=== PATIENT | female | born 1950 | race Caucasian/White ===

== ENCOUNTER → 2016-05-30 | Outpatient (CLI) | payer MEDICARE, OTHER ==
--- NOTE | 2016-05-31 08:03 | XR ---
EXAMINATION TYPE: XR sternum DATE OF EXAM: 05/30/2016 4:31 PM COMPARISON: NONE HISTORY: 66-year-old female with chest lump under xiphoid for 2 to 3 days. TECHNIQUE: 2 views FINDINGS: No sternal fracture identified. No periostitis or osteolysis identified. Costochondral calcifications are noted. IMPRESSION: No radiographically apparent abnormality of the sternum. Costochondral calcifications are present. If the clinical finding persists or enlarges, targeted ultrasound can be considered.
== END | disposition home or self-care (01) ==
LOC: RADXRYALE 16:10
PROVIDERS: ATTEND Physician Assistant Medical
DX: R93.8 Abnormal findings on diagnostic imaging of other specified body structures (principal)
CPT/HCPCS: 71120

== ENCOUNTER → 2016-06-02 | Outpatient (CLI) | payer MEDICARE, OTHER ==
--- NOTE | 2016-06-02 11:28 | CT ---
EXAMINATION TYPE: CT chest wo con DATE OF EXAM: 06/02/2016 11:01 AM COMPARISON: Sternal x-ray from 3 days ago. HISTORY: Abn CXr and Lump in chest CT DLP: 524 mGycm. Automated Exposure Control for Dose Reduction was Utilized. TECHNIQUE: CT scan of the thorax is performed without IV contrast. FINDINGS: LUNGS: There is patchy groundglass opacity in the right midlung anteriorly near axial image 22 consid er limited infectious process at this level. There is no concerning parenchymal mass or nodule identi fied. There is no pleural effusion or pneumothorax seen. The tracheobronchial tree is patent. MEDIASTINUM: Lack of IV contrast is noted to limit evaluation for mediastinal and especially hilar ad enopathy. There are no definitive greater than 1 cm hilar or mediastinal lymph nodes. No cardiomega ly or pericardial effusion is seen. Coronary artery calcification is present. Bovine type arch is see n. There is mild calcified plaque in aorta arch extending into arch branch vessels OTHER: Liver is diffusely low dense consistent with fatty infiltration. Some multilevel spurring in t horacic spine is present. Sternum appears within normal limits without suspicious lytic or sclerotic lesion or adjacent soft tissue mass noted. IMPRESSION: 1. No suspicious finding at level of sternum. 2. Patchy groundglass opacity right midlung anteriorly could reflect mild or early acute infectious p rocess in appropriate clinical setting, clinical correlation advised.
== END | disposition home or self-care (01) ==
LOC: RADCTMAIN 10:05
PROVIDERS: ATTEND Physician Assistant Medical
DX: R22.2 Localized swelling, mass and lump, trunk (principal)
CPT/HCPCS: 71250

== ENCOUNTER → 2016-07-19 | Outpatient (CLI) | payer MEDICARE, OTHER ==
--- NOTE | 2016-07-20 10:52 | XR ---
Right foot HISTORY: Trauma and pain 3 views of the right foot No comparisons The digits are flexed which may limit sensitivity. Alignment and bone mineralization are maintained. Mild degenerative change present at the metatarsophalangeal joint of the first digit. Atherosclerotic vascular calcifications are suspected. There is spurring at the tibiotalar joint, intertarsal joints and metatarsal tarsal and interphalangeal joints. Plantar calcaneus spur is noted. There is enthesop hyte at the insertion of the Achilles tendon. IMPRESSION: Osteoarthritis. No fracture or dislocation evident, follow-up as indicated
== END ==
LOC: RADXRYALE 15:34
PROVIDERS: ATTEND Physician Assistant Medical
DX: M19.071 Primary osteoarthritis, right ankle and foot (principal)

== ENCOUNTER 2016-12-05 09:05 | Day surgery (SDC) | payer MEDICARE, OTHER ==
[2016-12-03 16:05] VITALS: BMI 24.4
[~2016-12-05 09:05] MED LIST: LACTATED RINGERS 1,000 ML IV SCH
[2016-12-05 09:32] VITALS: RESP 16; TEMP 97.8
[2016-12-05 09:41] LABS: Glucose,Whole Blood 108 mg/dL (75-99)
[2016-12-05] MEDS ORDERED: LIDOCAINE 1% 20 ML VIAL (10MG/ML) FOR IV START INTRADERMA ONE (09:41)
[2016-12-05] MEDS ORDERED: PROPOFOL 10 MG/ML 20 ML VIAL IV ONE (09:56)
--- NOTE | 2016-12-05 10:07 | P.PCN ---
Date of Procedure: 12/05/16 Procedure(s) Performed: BRIEF HISTORY: Patient is a 66-year-old white female, scheduled for an upper endoscopy as a part of evaluation of epigastric pain for the last several months duration. She denies any heartburn, denies any recent NSAID use. No prior history of peptic ulcer disease. PROCEDURE PERFORMED: Esophagogastroduodenoscopy with biopsy. PREOPERATIVE DIAGNOSIS: Chronic epigastric pain. IV sedation per anesthesia. PROCEDURE: After informed consent was obtained, the patient was brought into the endoscopy unit. IV sedation was administered by Anesthesia under continuous monitoring. Initially the Olympus GIF-140 video endoscope was inserted into the mouth. Esophagus intubated without any difficulty. It was gradually advanced into the stomach and duodenum and carefully examined. The bulb and the second part of the duodenum appeared normal. The scope at this time was withdrawn to the stomach, adequately insufflated with air, and upon careful examination, mucosa of the antrum had mild gastritis and biopsies were done from this area. The body, cardia and the fundus appeared normal. The scope was then withdrawn into the esophagus. The GE junction was located at 39 cm from the incisors. There were 2 superficial erosions consistent with LA grade a reflux esophagitis. The rest of the esophagus appeared normal and the patient tolerated the procedure well. IMPRESSION: 1. Mild antral gastritis. 2. LA grade A reflux esophagitis. RECOMMENDATIONS: The findings of this examination were discussed with the patient as well as her family. She was advised to follow with the biopsy results. She was given a prescription for Zantac 150 milligrams twice daily..
[2016-12-05 10:57] VITALS: BP 179/81; PULSE 57
== END 2016-12-05 11:06 | disposition home or self-care (01) ==
LOC: ORWHC2ENDO 09:05
PROVIDERS: ATTEND Internal Medicine Gastroenterology
DX: K21.0 Gastro-esophageal reflux disease with esophagitis (principal); I25.10 Atherosclerotic heart disease of native coronary artery without angina pectoris; I10 Essential (primary) hypertension; Z72.0 Tobacco use; E78.5 Hyperlipidemia, unspecified; E11.9 Type 2 diabetes mellitus without complications; Z79.84 Long term (current) use of oral hypoglycemic drugs; E07.9 Disorder of thyroid, unspecified; N28.9 Disorder of kidney and ureter, unspecified; Z86.73 Personal history of transient ischemic attack (TIA), and cerebral infarction without residual deficits; G25.81 Restless legs syndrome; M10.9 Gout, unspecified; Z79.891 Long term (current) use of opiate analgesic; Z79.899 Other long term (current) drug therapy; Z91.041 Radiographic dye allergy status
CPT/HCPCS: 88305; 88342; 43239; J2704

== ENCOUNTER → 2018-03-20 | Outpatient (CLI) | payer MEDICARE, OTHER ==
--- NOTE | 2018-03-20 14:27 | XR ---
EXAMINATION TYPE: XR Hip Complete LT DATE OF EXAM: 03/20/2018 CLINICAL HISTORY: pain TECHNIQUE: AP and frogleg views of the left hip are obtained. COMPARISON: None. FINDINGS: There is no acute fracture/dislocation evident. The joint space appears within normal li mits. The overlying soft tissue appears unremarkable. IMPRESSION: 1. There is no acute fracture or dislocation.ICD 10 NO FRACTURE, INITIAL EVALUATION
== END ==
LOC: RADXRYALE 13:54
PROVIDERS: ATTEND Physician Assistant Medical
DX: M25.552 Pain in left hip (principal)
CPT/HCPCS: 73502

== ENCOUNTER 2018-07-29 16:43 | Emergency (ER) | payer MEDICARE, OTHER ==
[2018-07-29] MEDS ORDERED: NALOXONE 0.4 MG/ML 1 ML VIAL IV STA ×2 (16:46→16:47)
[2018-07-29] MEDS ORDERED: methylPREDNISolone SOD SUCCI 125 MG/2 ML VIAL IV STA (16:50)
[2018-07-29] MEDS ORDERED: FAMOTIDINE 20 MG/2 ML VIAL IV STA (16:50)
[2018-07-29] MEDS ORDERED: diphenhydrAMINE 50 MG/ML 1 ML VIAL IVP STA (16:50)
[2018-07-29 16:52] VITALS: TEMP 98.1
[2018-07-29] MEDS ORDERED: LORazepam 2 MG/ML INJ IV STA (16:54)
[2018-07-29] MEDS ORDERED: FAMOTIDINE 20 MG/2 ML VIAL IV ONE (17:00)
[2018-07-29] MEDS ORDERED: methylPREDNISolone SOD SUCCI 125 MG/2 ML VIAL IV ONE (17:00)
[2018-07-29] MEDS ORDERED: LORazepam 2 MG/ML INJ IV ONE (17:00)
[2018-07-29] MEDS ORDERED: diphenhydrAMINE 50 MG/ML 1 ML VIAL IVP ONE (17:00)
--- NOTE | 2018-07-29 17:03 | ED ---
Neuro HPI - General Chief Complaint: Neuro Symptoms/Deficit Stated Complaint: poss stroke Time Seen by Provider: 07/29/18 16:43 Source: EMS, RN notes reviewed, old records reviewed Mode of arrival: EMS Limitations: altered mental status - History of Present Illness Is the patient presenting with stroke symptoms?: Yes Initial Comments: This is a 60-year-old female history of TIA CVA, heart disease anemia renal disease osteoarthritis diabetes who has sudden onset about 45 minutes prior to arrival of decreased level of consciousness with decreased use of the right upper and lower extremity. Patient was noted have elevated blood sugar per paramedics. No trauma reported she apparently was at a movie theater at the time. Limited information available at this time. - Related Data Home Medications: Home Medications Medication Instructions Recorded Confirmed Allopurinol [Zyloprim] 100 mg PO DAILY 12/14/13 07/29/18 Gabapentin 600 mg PO QID 12/14/13 07/29/18 Metoprolol Tartrate 12.5 mg PO BID 12/14/13 07/29/18 clonazePAM [KlonoPIN] 0.5 mg PO BID 12/14/13 07/29/18 Atorvastatin [Lipitor] 40 mg PO HS 12/03/16 07/29/18 Fenofibrate,Micronized 134 mg PO DAILY 12/03/16 07/29/18 [Fenofibrate] Ergocalciferol (Vitamin D2) 50,000 unit PO Q7D 07/29/18 07/29/18 [Vitamin D2] Fish Oil/Dha/Epa [Fish Oil 1,200 1 cap PO DAILY 07/29/18 07/29/18 mg Fish Oil] Furosemide [Lasix] 20 mg PO DAILY PRN 07/29/18 07/29/18 Levothyroxine Sodium 112 mcg PO DAILY 07/29/18 07/29/18 Magnesium Oxide [Mag-Ox] 250 mg PO DAILY 07/29/18 07/29/18 Niacin 500 mg PO DAILY 07/29/18 07/29/18 Pioglitazone [Actos] 45 mg PO DAILY 07/29/18 07/29/18 Ranitidine HCl 150 mg PO BID 07/29/18 07/29/18 amLODIPine [Norvasc] 10 mg PO DAILY 07/29/18 07/29/18 hydrALAZINE HCL [Apresoline] 25 mg PO BID 07/29/18 07/29/18 oxyCODONE-APAP 7.5-325MG [Percocet 1 tab PO Q6HR PRN 07/29/18 07/29/18 7.5-325 mg] sitaGLIPtin [Januvia] 100 mg PO DAILY 07/29/18 07/29/18 Allergies/Adverse Reactions: Allergies Allergy/AdvReac Type Severity Reaction Status Date / Time Iodinated Contrast- Oral and Allergy Anaphylaxis Verified 07/29/18 17:23 IV Dye Review of Systems ROS Statement: Those systems with pertinent positive or pertinent negative responses have been documented in the HPI. ROS Other: All systems not noted in ROS Statement are negative. Limitations: ROS unobtainable due to patients medical condition General Exam - General Exam Comments Initial Comments: Physical well-developed well-nourished lethargic female she does open her eyes upon request she does open her mouth on request she does squeeze his left upper extremity does not do the same to the right. He does demonstrate somnolence. Limitations: altered mental status, physical limitation General appearance: lethargic Head exam: Present: atraumatic, normocephalic, normal inspection Eye exam: Present: normal appearance, PERRL, EOMI. Absent: scleral icterus, conjunctival injection, periorbital swelling ENT exam: Present: other (Dentures are in place) Neck exam: Present: normal inspection, full ROM (No stridor JVD or bruits), other. Absent: tenderness, meningismus, lymphadenopathy Respiratory exam: Present: normal lung sounds bilaterally. Absent: respiratory distress, wheezes, rales, rhonchi, stridor Cardiovascular Exam: Present: regular rate, normal rhythm, normal heart sounds. Absent: systolic murmur, diastolic murmur, rubs, gallop, clicks GI/Abdominal exam: Present: soft, normal bowel sounds. Absent: distended, tenderness, guarding, rebound, rigid, bruit, pulsatile mass Rectal exam: Present: deferred Extremities exam: Present: normal capillary refill, other (Patient does not move the right upper or lower extremity). Absent: full ROM Back exam: Present: normal inspection Neurological exam: Present: altered, CN II-XII intact, motor sensory deficit Psychiatric exam: Present: other (Unable to evaluate at this time) Skin exam: Present: warm, dry, intact, normal color. Absent: rash Stroke MDM - Lab Data Result diagrams: 07/29/18 16:52 07/29/18 16:52 Lab Results 07/29/18 07/29/18 07/29/18 Range/Units 16:52 16:52 16:52 WBC 7.2 (3.8-10.6) k/uL RBC 4.18 (3.80-5.40) m/uL Hgb 12.7 (11.4-16.0) gm/dL Hct 40.1 (34.0-46.0) % MCV 95.8 (80.0-100.0) fL MCH 30.4 (25.0-35.0) pg MCHC 31.7 (31.0-37.0) g/dL RDW 16.1 H (11.5-15.5) % Plt Count 194 (150-450) k/uL Neutrophils % 61 % Lymphocytes % 30 % Monocytes % 5 % Eosinophils % 2 % Basophils % 1 % Neutrophils # 4.4 (1.3-7.7) k/uL Lymphocytes # 2.2 (1.0-4.8) k/uL Monocytes # 0.4 (0-1.0) k/uL Eosinophils # 0.1 (0-0.7) k/uL Basophils # 0.0 (0-0.2) k/uL Anisocytosis Slight PT 11.2 (9.0-12.0) sec INR 1.1 (<1.2) APTT 23.6 (22.0-30.0) sec Sodium 141 (137-145) mmol/L Potassium 4.2 (3.5-5.1) mmol/L Chloride 106 (98-107) mmol/L Carbon Dioxide 28 (22-30) mmol/L Anion Gap 7 mmol/L BUN 21 H (7-17) mg/dL Creatinine 1.62 H (0.52-1.04) mg/dL Est GFR (CKD-EPI)AfAm 37 (>60 ml/min/1.73 sqM) Est GFR (CKD-EPI)NonAf 32 (>60 ml/min/1.73 sqM) Glucose 244 H (74-99) mg/dL POC Glucose (mg/dL) (75-99) mg/dL POC Glu Medical Records Analyst ID Calcium 9.3 (8.4-10.2) mg/dL Total Bilirubin 0.4 (0.2-1.3) mg/dL AST 26 (14-36) U/L ALT 13 (9-52) U/L Alkaline Phosphatase 60 (38-126) U/L Creatine Kinase 79 (30-135) U/L Troponin I (0.000-0.034) ng/mL Total Protein 6.5 (6.3-8.2) g/dL Albumin 4.0 (3.5-5.0) g/dL 07/29/18 07/29/18 Range/Units 16:52 17:19 WBC (3.8-10.6) k/uL RBC (3.80-5.40) m/uL Hgb (11.4-16.0) gm/dL Hct (34.0-46.0) % MCV (80.0-100.0) fL MCH (25.0-35.0) pg MCHC (31.0-37.0) g/dL RDW (11.5-15.5) % Plt Count (150-450) k/uL Neutrophils % % Lymphocytes % % Monocytes % % Eosinophils % % Basophils % % Neutrophils # (1.3-7.7) k/uL Lymphocytes # (1.0-4.8) k/uL Monocytes # (0-1.0) k/uL Eosinophils # (0-0.7) k/uL Basophils # (0-0.2) k/uL Anisocytosis PT (9.0-12.0) sec INR (<1.2) APTT (22.0-30.0) sec Sodium (137-145) mmol/L Potassium (3.5-5.1) mmol/L Chloride (98-107) mmol/L Carbon Dioxide (22-30) mmol/L Anion Gap mmol/L BUN (7-17) mg/dL Creatinine (0.52-1.04) mg/dL Est GFR (CKD-EPI)AfAm (>60 ml/min/1.73 sqM) Est GFR (CKD-EPI)NonAf (>60 ml/min/1.73 sqM) Glucose (74-99) mg/dL POC Glucose (mg/dL) 187 H (75-99) mg/dL POC Glu Medical Records Analyst ID Baunoch, Rashida Calcium (8.4-10.2) mg/dL Total Bilirubin (0.2-1.3) mg/dL AST (14-36) U/L ALT (9-52) U/L Alkaline Phosphatase (38-126) U/L Creatine Kinase (30-135) U/L Troponin I <0.012 (0.000-0.034) ng/mL Total Protein (6.3-8.2) g/dL Albumin (3.5-5.0) g/dL - NIH Stroke Scale 1a. Level of Consciousness: (1) not alert, arousable 1b. LOC Questions: (2) answers no questions correctly 1c. LOC Commands: (2) performs no tasks correctly 2. Best Gaze: (0) normal 3. Visual: (0) no visual loss 4. Facial Palsy: (0) normal symmetrical movement 5a. Motor Arm Left: (0) no drift 5b. Motor Arm Right: (3) no gravity effort 6a. Motor Leg Left: (0) no drift 6b. Motor Leg Right: (3) no gravity effort 7. Limb Ataxia: (0) absent 8. Sensory: (1) mild/moderate sensory loss 9. Best Language: (un) mute/global aphasia 10. Dysarthria: (un) intubated/barrier 11. Extinction/Inattention: (2) profound inattention - Thrombolytic Inclusion/Exclusion Thrombolytic Inclusion Criteria: Ischemic Stroke Onset< 3h Thrombolytic Contraindications: Systolic Pressure > 185 - EKG Data -: EKG Interpreted by Tn EKG shows normal: sinus rhythm (Sinus rhythm rate is 76. Interval 170 QRS duration 80 QT since QTC 404/454 minimal voltage criteria for LVH artifact is present.) Past Medical History Past Medical History: Cancer, CVA/TIA, Diabetes Mellitus, Hyperlipidemia, Hypertension, Osteoarthritis (OA), Renal Disease, Skin Disorder, Thyroid Disorder Additional Past Medical History / Comment(s): Hx of thyroid cancer, eczema, gout History of Any Multi-Drug Resistant Organisms: None Reported Past Surgical History: Adenoidectomy, Section, Cholecystectomy, Heart Catheterization With Stent, Tonsillectomy Additional Past Surgical History / Comment(s): thyroidectomy Past Anesthesia/Blood Transfusion Reactions: Previous Problems w/ Anesthesia Additional Past Anesthesia/Blood Transfusion Reaction / Comment(s): STATES NEEDS "PEDIATRIC SCOPE FOR INTUBATION" Date of Last Stent Placement:: 03/2004 Past Psychological History: No Psychological Hx Reported Smoking Status: Current every day smoker Course Vital Signs 07/29/18 07/29/18 07/29/18 16:46 16:47 16:48 Temperature 98.1 F Pulse Rate 78 72 Respiratory 12 16 15 Rate Blood Pressure 211/87 O2 Sat by Pulse 95 Oximetry 07/29/18 07/29/18 07/29/18 17:00 17:15 17:30 Temperature Pulse Rate 75 75 Respiratory 18 Rate Blood Pressure 220/98 206/97 220/88 O2 Sat by Pulse 99 96 97 Oximetry 07/29/18 07/29/18 17:45 18:00 Temperature Pulse Rate 76 77 Respiratory 18 18 Rate Blood Pressure 196/87 175/83 O2 Sat by Pulse 96 95 Oximetry - Reevaluation(s) Reevaluation #1: 07/29/18 17:40 Reevaluation after return from CAT scan reveals no change in patient's condition. No evidence of any acute bleed. Patient blood pressure is elevated over 220 IV medications are ordered Reevaluation #2: 07/29/18 17:40 Dr. Dilip guillen examine the patient via the robot TPA is recommended blood pressure still is elevated. Patient will be transferred to [facility] family was in attendance and do agree with the TPA administration. Risks and benefits were discussed. Reevaluation #3: 07/29/18 17:43 TPA delay due to elevated blood pressure. IV labetalol ineffective Cardene has been ordered along with a fluid challenge. Neuro status remains unchanged Reevaluation #4: 07/29/18 18:02 The blood pressure is probably within limits for TPA it is started. Patient will be transferred to [facility] I did discuss case with Dr. Fowler will be accepted patient ER to ER. The neuro interventional team is being immobilized. Critical Care Time Critical Care Time: Yes Critical Care Time: 43 minutes of critical care time which includes initial presentation with history physical labs x-rays discussed with multiple family members on several occasions reevaluation of the patient on multiple occasions. Discussion with Dr. Knapp on [address] Fowler review of old charting documentation of the above Disposition Clinical Impression: Cerebrovascular accident, Hypertensive urgency, Hyperglycemia Disposition: OTHER INSTITUTION NOT DEFINED Condition: Critical Referrals: Shalom Bliss DO [Primary Care Provider] - 1-2 days - Out of Hospital Transfer - Req. Specs Out of Hospital Transfer - Requested Specifics: Other Emergency Center
[2018-07-29 17:21] LABS: Glucose,Whole Blood 187 mg/dL (75-99)
[2018-07-29 17:23] LABS: Anisocytosis Slight; Basophils % (A) 1 %; Eosinophils # (A) 0.1 k/uL (0-0.7); Eosinophils % (A) 2 %; HCT 40.1 % (34.0-46.0); HGB 12.7 gm/dL (11.4-16.0); Lymphocytes # (A) 2.2 k/uL (1.0-4.8); Lymphocytes % (A) 30 %; MCH 30.4 pg (25.0-35.0); MCHC 31.7 g/dL (31.0-37.0); MCV 95.8 fL (80.0-100.0); Mean Platelet Volume 7.5; Monocytes # (A) 0.4 k/uL (0-1.0); Monocytes % (A) 5 %; Neutrophils # (A) 4.4 k/uL (1.3-7.7); Neutrophils % (A) 61 %; Platelet Count 194 k/uL (150-450); RBC 4.18 m/uL (3.80-5.40); RDW 16.1 % (11.5-15.5); WBC 7.2 k/uL (3.8-10.6)
[2018-07-29] MEDS ORDERED: LABETALOL 5 MG/ML VIAL MDV IVP STA (17:23)
[2018-07-29] MEDS ORDERED: SODIUM CHLORIDE 0.9% 500 ML 500 ML IV STA (17:24)
[2018-07-29 17:26] LABS: INR 1.1 (<1.2); Partial Thromboplastin Time 23.6 sec (22.0-30.0); Prothrombin Time 11.2 sec (9.0-12.0)
[2018-07-29] MEDS ORDERED: tPA (Alteplase) PER PHARMACY 1 EACH MISC MISCELLANE PRN ×2 (17:26→17:27)
[2018-07-29] MEDS ORDERED: ALTEPLASE 58 MG in EMPTY BAG 1 BAG IV STA (17:27)
[2018-07-29] MEDS ORDERED: ALTEPLASE IV STA (17:29)
[2018-07-29 17:33] LABS: Calcium 9.3 mg/dL (8.4-10.2); Potassium 4.2 mmol/L (3.5-5.1); Total Bilirubin 0.4 mg/dL (0.2-1.3); Total Protein 6.5 g/dL (6.3-8.2)
--- NOTE | 2018-07-29 17:35 | CT ---
EXAMINATION TYPE: CT brain wo con DATE OF EXAM: 07/29/2018 COMPARISON: 12/14/2013 HISTORY: Right sided weakness. CT DLP: 1139 mGycm Automated exposure control for dose reduction was used. FINDINGS: There is 2 x 1 cm area of hypodensity in the anterior right internal capsule. There is some enlargeme nt right frontal horn lateral ventricle. There is no midline shift. There is no sign of intracranial hemorrhage. The calvarium is intact. IMPRESSION: OLD LACUNAR INFARCT RIGHT INTERNAL CAPSULE. NO ACUTE INTRACRANIAL ABNORMALITY. NO CHANGE COMPARED TO LAST EXAM.
[2018-07-29] MEDS ORDERED: niCARdipine 20 MG in SODIUM CHLORIDE 0.9% 192 ML IV ONE (17:45)
[2018-07-29] MEDS ORDERED: SODIUM CHLORIDE 0.9% 500 ML 500 ML IV ONE (17:45)
[2018-07-29] MEDS ORDERED: LABETALOL SYRINGE 5 MG/ML IV ONE (17:45)
[2018-07-29 18:14] VITALS: BP 159/76; PULSE 79; RESP 16
--- NOTE | 2018-07-29 18:32 | CT ---
EXAMINATION TYPE: CT angio head neck DATE OF EXAM: 07/29/2018 HISTORY: Right sided weakness. COMPARISON: None CT DLP: 431.9 mGycm. Automated Exposure Control for Dose Reduction was Utilized. TECHNIQUE: CTA scan of the neck is performed with IV Contrast, patient injected with 50 mL of Isovue 370, axial images are obtained, coronal and sagittal reformatted images are reviewed. Three-D recons tructed images are created on an independent workstation and reviewed. FINDINGS: There is normal branching pattern of the great vessels on the aortic arch. There is bilateral arteria l flow in the subclavian arteries. There is bilateral arterial flow in the vertebral arteries which a re fairly symmetric. There is arterial flow in the common internal and external carotid arteries bila terally. There is approximate 50% luminal narrowing due to plaque formation at the origin left paralegal internship al carotid artery. There is similar 50% luminal narrowing due to long segment plaque at the proximal right internal carotid artery. There is no evidence of carotid artery aneurysm or dissection. There is arterial flow in the anterior middle and posterior cerebral arteries bilaterally. There is a rterial flow in the vertebrobasilar artery system. I see no mass effect. There is no evidence of intr acranial aneurysm or neovascularity. There is normal contrast opacification of the venous sinuses. I see no evidence of focal hemodynamic intracranial arterial stenosis. IMPRESSION: There is plaque formation at both proximal internal carotid arteries with narrowing 50% bilaterally. No demonstrated intracranial vascular abnormality.
[2018-07-29] MEDS ORDERED: niCARdipine 20 MG in SODIUM CHLORIDE 0.9% 192 ML IV SCH (21:00)
== END 2018-07-29 18:15 | disposition other institution (70) ==
LOC: EC 16:43
DX: I63.9 Cerebral infarction, unspecified (principal); I16.0 Hypertensive urgency; E11.65 Type 2 diabetes mellitus with hyperglycemia; E78.5 Hyperlipidemia, unspecified; M19.90 Unspecified osteoarthritis, unspecified site; M10.9 Gout, unspecified; E07.9 Disorder of thyroid, unspecified; F17.200 Nicotine dependence, unspecified, uncomplicated; Z86.73 Personal history of transient ischemic attack (TIA), and cerebral infarction without residual deficits; Z85.850 Personal history of malignant neoplasm of thyroid; R29.719 NIHSS score 19; Z79.890 Hormone replacement therapy; Z79.84 Long term (current) use of oral hypoglycemic drugs; Z79.899 Other long term (current) drug therapy; Z91.048 Other nonmedicinal substance allergy status
CPT/HCPCS: 36415; 93005; 80053; 82550; 84484; 85025; 85610; 85730; 70496; 70450; 70498; 99291; 37195; 96365; 96375 ×6; J2060; J1200; J2930; J2997; Q9967